=== PATIENT | female | born 1945 | race African-American/Black ===

== ENCOUNTER → 2021-08-17 | Day surgery (SDC) | payer MEDICARE ==
[~2021-08-17] VITALS: Ht 152.4 cm; Wt 123.6 kg
[~2021-08-17] MED LIST: AMLO-186 PO; ASPI-630 PO; HYDR12.575 PO; HYDROmorphone 2 MG/ML INJ. IVP PRN; IBUP200T58 PO; IV RINGERS,LACTATED 1000ML 1,000 ML IV SCH; LACT1CAP37 PO; LIDOCAINE 2% PF 5 ML VIAL. ONE; LOSA100T14 PO; MORPHINE SULFATE 2 MG/ML INJ. IVP PRN; PROCHLORPERAZINE 10 MG/2 ML VIAL. IVP PRN; SIMV20TA18 PO; VALS1TAB14 PO; fentaNYL PF VIAL 100 MCG/2 ML VIAL IVP PRN
[2021-08-17 07:09] VITALS: BP 149/82
[2021-08-17 08:28] VITALS: BP 126/59
== END | disposition home or self-care (01) ==
LOC: SURG 06:44
PROVIDERS: ATTEND Internal Medicine Gastroenterology
DX: Z12.11 Encounter for screening for malignant neoplasm of colon (principal); K64.0 First degree hemorrhoids; K63.89 Other specified diseases of intestine; I10 Essential (primary) hypertension; E78.00 Pure hypercholesterolemia, unspecified; E66.9 Obesity, unspecified; E11.9 Type 2 diabetes mellitus without complications; K21.9 Gastro-esophageal reflux disease without esophagitis; M19.90 Unspecified osteoarthritis, unspecified site; Z80.0 Family history of malignant neoplasm of digestive organs; Z86.010 Personal history of colon polyps; Z90.710 Acquired absence of both cervix and uterus; Z98.890 Other specified postprocedural states; Z79.899 Other long term (current) drug therapy; Z79.82 Long term (current) use of aspirin; Z88.5 Allergy status to narcotic agent
CPT/HCPCS: 45378; G0105